=== PATIENT | female | born 2000 | race Caucasian/White ===

== ENCOUNTER 2020-01-18 18:12 | Emergency (ER) | payer SELFPAY ==
[2020-01-18 20:55] LABS: ABS Basophils 0.1 10^3/ul (0-0.2); ABS Lymphocytes 2.2 10^3/ul (1.0-4.8); ABS Monocytes 0.2 10^3/ul (0-0.8); ABS Neutrophils 3.9 10^3/ul (1.5-7.7); Eosinophil % 0.2 %; Hematocrit 41 % (35-47); Hemoglobin 13.9 g/dL (12.0-16.0); Lymphocyte % 34.3 %; Mean Corpuscular HGB Conc 34 g/dL (31-36); Mean Corpuscular Hemoglobin 28 pg (27-31); Mean Corpuscular Volume 84 fL (80-97); Mean Platelet Volume 8.2 fL (7.4-10.4); Platelet Count 498 10^3/uL (150-450); Red Blood Count 4.94 10^6 /uL (3.70-4.87); Red Cell Distribution Width 15 % (10-15); White Blood Count 6.3 10^3/uL (3.5-10.8)
[2020-01-18] MEDS ORDERED: Acetaminophen TAB* 325 MG PO ONE (21:12)
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
[2020-01-18 21:13] LABS: ALT 16 U/L (7-52); AST 16 U/L (13-39); Albumin 5.1 g/dL (3.2-5.2); Albumin/Globulin Ratio 1.4 (1-3); Alkaline Phosphatase 57 U/L (34-104); Anion Gap 10 mmol/L (2-11); BUN/Creatinine Ratio 9.5 (8-20); Blood Urea Nitrogen 6 mg/dL (6-24); CO2 Carbon Dioxide 24 mmol/L (22-32); Calcium 9.7 mg/dL (8.6-10.3); Chloride 108 mmol/L (101-111); EGFR African American 144.3 (>60); EGFR Non-African American 119.3 (>60); Globulin 3.6 g/dL (2-4); Glucose 99 mg/dL (70-100); Magnesium 2.2 mg/dL (1.9-2.7); Potassium 4.3 mmol/L (3.5-5.0); Sodium 142 mmol/L (135-145); Total Protein 8.7 g/dL (6.4-8.9)
[2020-01-18 21:20] LABS: Alcohol 186 mg/dL (<10); HCG Pregnancy < 0.60 mIU/mL
[2020-01-18 21:35] LABS: TSH (Thyroid Stimulating Horm) 1.04 mcIU/mL (0.34-5.60)
[2020-01-18 22:27] VITALS: BP 130/99
== END 2020-01-18 22:25 | disposition home or self-care (01) ==
LOC: ED 18:12
DX: F10.129 Alcohol abuse with intoxication, unspecified (principal); Y90.6 Blood alcohol level of 120-199 mg/100 ml; S62.514A Nondisplaced fracture of proximal phalanx of right thumb, initial encounter for closed fracture; V47.5XXA Car driver injured in collision with fixed or stationary object in traffic accident, initial encounter; Y92.410 Unspecified street and highway as the place of occurrence of the external cause
CPT/HCPCS: 36415; 80053; 80320; 83605; 83735; 84443; 84484; 84702; 85025; 99282; A9270-GY; G0480